=== PATIENT | female | born 1985 | race African-American/Black ===

== ENCOUNTER 2020-05-06 16:58 | Emergency (ER) | payer OTHER ==
[2020-05-06 17:10] VITALS: BP 170/90; PULSE 74; BMI 39.1
[2020-05-06 17:12] VITALS: TEMP 97.8
[2020-05-06] MEDS ORDERED: IBUPROFEN 400 MG TABLET (FP) PO ONE ×2 (17:48→18:35)
[2020-05-06] MEDS ORDERED: ACETAMINOPHEN 1000 MG/100 ML VIAL (NON FORMULARY) IVPB ONE (18:00)
[2020-05-06] MEDS ORDERED: SODIUM CHLORIDE 0.9% 500 ML INFUS.BAG IV ONE (18:00)
[2020-05-06] MEDS ORDERED: METOCLOPRAMIDE HCL INJECTION 10 MG/2 ML VIAL IVPB ONE ×2 (18:00→18:26)
[2020-05-06] MEDS ORDERED: METOCLOPRAMIDE HCL INJECTION 10 MG/2 ML VIAL ONE (18:31)
[2020-05-06] MEDS ORDERED: ACETAMINOPHEN 500 MG TABLET (FP) PO ONE (19:05)
[2020-05-06] MEDS ORDERED: ACETAMINOPHEN 325 MG TABLET (FP) ONE (19:06)
== END 2020-05-06 19:25 | disposition home or self-care (01) ==
LOC: JER 16:58
PROC: 3E0333Z Introduction of Anti-inflammatory into Peripheral Vein, Percutaneous Approach (ICD-10-PCS; principal; 2020-05-06)
PROC: 3E033GC Introduction of Other Therapeutic Substance into Peripheral Vein, Percutaneous Approach (ICD-10-PCS; 2020-05-06)
DX: G43.009 Migraine without aura, not intractable, without status migrainosus (principal)
CPT/HCPCS: 99284-25

== ENCOUNTER 2020-09-11 10:24 | Emergency (ER) | payer OTHER ==
[2020-09-11 10:33] VITALS: BP 145/82; PULSE 80; TEMP 97.6; BMI 37.5
[2020-09-11 11:41] LABS: HCG,QUALITATIVE URINE Negative
[2020-09-11 11:42] LABS: EPI CELLS 21 /uL (0-25.1); HYALINE CASTS 1 /uL (0-3.1); PH,URINE 5.5 (5.0-8.0); URINE APPEARANCE CLEAR; URINE BACTERIA 270 /uL (0-1359); URINE BILIRUBIN NEGATIVE (NEGATIVE); URINE COLOR YELLOW; URINE GLUCOSE (UA) NEGATIVE (NEGATIVE); URINE KETONE NEGATIVE (NEGATIVE); URINE LEUK ESTERASE NEGATIVE (NEGATIVE); URINE NITRITE NEGATIVE (NEGATIVE); URINE PROTEIN NEGATIVE (NEGATIVE); URINE RBC 18 /uL (0-23.9); URINE UROBILINOGEN 0.2 mg/dL (0.2-1.0); URINE WBC 6 /uL (0-25.8)
== END 2020-09-11 12:29 | disposition home or self-care (01) ==
LOC: JER 10:24
DX: R10.2 Pelvic and perineal pain (principal)
CPT/HCPCS: 36415; 76830-TC; 81003; 84703; 87086; 87491; 87591; 99284-25

== ENCOUNTER 2020-11-02 18:15 | Emergency (ER) | payer OTHER ==
[2020-11-02 18:20] VITALS: BP 159/92; PULSE 95; TEMP 98.8; BMI 44.1
[2020-11-02] MEDS ORDERED: KETOROLAC TROMETHAMINE 60 MG/2 ML VIAL IM ONE (19:17)
[2020-11-02] MEDS ORDERED: KETOROLAC TROMETHAMINE 30 MG/1 ML VIAL ONE (19:34)
== END 2020-11-02 20:45 | disposition home or self-care (01) ==
LOC: JERFT 18:15
PROC: 3E0233Z Introduction of Anti-inflammatory into Muscle, Percutaneous Approach (ICD-10-PCS; principal; 2020-11-02)
DX: K03.81 Cracked tooth (principal)
CPT/HCPCS: 99284-25

== ENCOUNTER 2021-01-17 19:19 | Emergency (ER) | payer OTHER ==
[2021-01-17 19:44] VITALS: BP 134/81; PULSE 67; TEMP 97.9; BMI 41.1
[2021-01-17 22:06] LABS: BASO % 0.5 % (0-2.0); EOS % 1.2 % (0-4.5); HEMATOCRIT 34.9 % (32.4-45.2); HEMOGLOBIN 11.9 GM/dL (10.7-15.3); MCHC 34.2 g/dl (32.0-36.0); MEAN CELL VOLUME 93.4 fl (80-96); MONO % 8.6 % (3.8-10.2); NEUT % 44.7 % (42.8-82.8); PLATELET COUNT 264 10^3/uL (134-434); RBC 3.74 M/mm3 (3.60-5.2); RDW 13.9 % (11.6-15.6)
[2021-01-17 22:21] LABS: EPI CELLS 24 /uL (0-25.1); HYALINE CASTS 2 /uL (0-3.1); PH,URINE 5.5 (5.0-8.0); URINE APPEARANCE CLOUDY; URINE BACTERIA 252 /uL (0-1359); URINE BILIRUBIN NEGATIVE (NEGATIVE); URINE COLOR DK YELLOW; URINE GLUCOSE (UA) NEGATIVE (NEGATIVE); URINE KETONE TRACE (NEGATIVE); URINE LEUK ESTERASE NEGATIVE (NEGATIVE); URINE NITRITE NEGATIVE (NEGATIVE); URINE PROTEIN NEGATIVE (NEGATIVE); URINE WBC 20 /uL (0-25.8)
== END 2021-01-18 00:24 | disposition home or self-care (01) ==
LOC: JER 19:19
DX: O20.9 Hemorrhage in early pregnancy, unspecified (principal); Z3A.01 Less than 8 weeks gestation of pregnancy
CPT/HCPCS: 36415; 76817-TC; 81003; 84702; 84703; 85025; 86850; 86900; 86901; 99284-25

== ENCOUNTER 2021-05-17 22:36 | Emergency (ER) | payer OTHER ==
[2021-05-17 22:57] VITALS: BMI 43.8
[2021-05-18] MEDS ORDERED: SODIUM CHLORIDE 0.9% 500 ML INFUS.BAG IV ONE (02:50)
[2021-05-18 02:51] VITALS: BP 116/74; PULSE 119; TEMP 99.6
[2021-05-18 03:28] LABS: BASO % 0.3 % (0-2.0); EOS % 1.5 % (0-4.5); HEMATOCRIT 33.4 % (32.4-45.2); HEMOGLOBIN 11.5 GM/dL (10.7-15.3); LYMPH % 9.5 % (8-40); MCH 31.2 pg (25.7-33.7); MCHC 34.5 g/dl (32.0-36.0); MEAN CELL VOLUME 90.4 fl (80-96); MEAN PLT VOLUME 8.6 fl (7.5-11.1); MONO % 14.5 % (3.8-10.2); NEUT % 74.2 % (42.8-82.8); PLATELET COUNT 263 10^3/uL (134-434); RBC 3.69 M/mm3 (3.60-5.2); RDW 14.3 % (11.6-15.6); WHITE BLOOD COUNT 6.7 K/mm3 (4.0-10.0)
[2021-05-18] MEDS ORDERED: MAG HYDROX/AL HYDROX/SIMETH 30 ML UNIT-DOSE CUP PO ONE (03:36)
[2021-05-18] MEDS ORDERED: FAMOTIDINE 20 MG/50 ML IVPB 50 ML IVPB ONE (03:36)
[2021-05-18] MEDS ORDERED: ACETAMINOPHEN 1000 MG/100 ML VIAL IVPB ONE (03:37)
[2021-05-18 03:48] LABS: CALCIUM 8.7 mg/dL (8.5-10.1)
[2021-05-18 03:49] LABS: ALBUMIN 2.9 g/dl (3.4-5.0); BLOOD UREA NITROGEN 4.5 mg/dL (7-18)
[2021-05-18 03:52] LABS: CREATININE 0.5 mg/dL (0.55-1.3)
[2021-05-18 03:54] LABS: BILIRUBIN,TOTAL 0.3 mg/dL (0.2-1); TOT PROT 7.4 g/dl (6.4-8.2)
[2021-05-18] MEDS ORDERED: MAG HYDROX/AL HYDROX/SIMETH 30 ML UNIT-DOSE CUP ONE (04:04)
[2021-05-18] MEDS ORDERED: ACETAMINOPHEN INJECTION 100 ML IVPB ONE (04:04)
[2021-05-18 05:30] LABS: EPI CELLS 25 /uL (0-25.1); HYALINE CASTS 2 /uL (0-3.1); PH,URINE 6.5 (5.0-8.0); URINE APPEARANCE CLEAR; URINE BACTERIA 436 /uL (0-1359); URINE BILIRUBIN NEGATIVE (NEGATIVE); URINE COLOR YELLOW; URINE GLUCOSE (UA) NEGATIVE (NEGATIVE); URINE KETONE 2+ (NEGATIVE); URINE LEUK ESTERASE NEGATIVE (NEGATIVE); URINE NITRITE NEGATIVE (NEGATIVE); URINE PROTEIN TRACE (NEGATIVE); URINE RBC 82 /uL (0-23.9); URINE WBC 14 /uL (0-25.8)
[2021-05-18] MEDS ORDERED: FAMOTIDINE/PF 20 MG/2 ML VIAL IVPB ONE (05:30)
== END 2021-05-18 05:48 | disposition home or self-care (01) ==
LOC: JER 22:36
DX: U07.1 COVID-19 (principal); R00.0 Tachycardia, unspecified; N39.0 Urinary tract infection, site not specified
CPT/HCPCS: 36415; 80053; 81003; 85025; 87086; 87804; 93005; 93010; 99284-25; C9803; J0131; U0003; U0005

== ENCOUNTER 2021-05-25 10:24 | Emergency (ER) | payer OTHER ==
[2021-05-25 10:36] VITALS: BP 118/71; PULSE 123; TEMP 97.9; BMI 47.0
[2021-05-25] MEDS ORDERED: SODIUM CHLORIDE 1,000 ML IV STA (12:16)
[2021-05-25] MEDS ORDERED: ALBUTEROL SO4 HFA INHALER IH ONE ×2 (12:16→12:59)
== END 2021-05-25 16:06 | disposition home or self-care (01) ==
LOC: JER 10:24
PROC: 3E0337Z Introduction of Electrolytic and Water Balance Substance into Peripheral Vein, Percutaneous Approach (ICD-10-PCS; principal; 2021-05-25)
PROC: 3E0F7GC Introduction of Other Therapeutic Substance into Respiratory Tract, Via Natural or Artificial Opening (ICD-10-PCS; 2021-05-25)
DX: U07.1 COVID-19 (principal)
CPT/HCPCS: 99284-25

== ENCOUNTER 2021-06-10 15:06 | Emergency (ER) | payer OTHER ==
[2021-06-10 15:26] VITALS: BMI 40.5
[2021-06-10] MEDS ORDERED: ALBUTEROL SO4 2.5/IPRATROPIUM 0.5 INH SOL 3 ML VIAL.NEB. NEB ONE ×4 (15:36→22:18)
[2021-06-10] MEDS ORDERED: ALBUTEROL SO4 0.083% IH SOL 2.5 MG/3 ML VIAL.NEB. NEB ONE (16:20)
[2021-06-10 19:57] VITALS: BP 130/71; PULSE 82; TEMP 98.3
[2021-06-10] MEDS ORDERED: AMOXICILLIN 500 MG CAPSULE (FP) PO ONE (21:30)
[2021-06-10] MEDS ORDERED: AMOXICILLIN 500 MG CAPSULE (FP) ONE (22:18)
[2021-06-10] MEDS ORDERED: ALBUTEROL SO4 HFA INHALER IH ONE (23:08)
== END 2021-06-10 23:49 | disposition home or self-care (01) ==
LOC: JER 15:06 → JERFT 15:06 → JER 20:35
PROC: 3E0F7GC Introduction of Other Therapeutic Substance into Respiratory Tract, Via Natural or Artificial Opening (ICD-10-PCS; principal; 2021-06-10)
PROC: 3E0F7GC Introduction of Other Therapeutic Substance into Respiratory Tract, Via Natural or Artificial Opening (ICD-10-PCS; 2021-06-10)
DX: O99.53 Diseases of the respiratory system complicating the puerperium (principal); R06.2 Wheezing; Z3A.27 27 weeks gestation of pregnancy
CPT/HCPCS: 93005; 93010; 99283-25

== ENCOUNTER 2021-06-13 11:21 | Emergency (ER) | payer OTHER ==
[2021-06-13 11:33] VITALS: BP 143/76; TEMP 98.1; BMI 39.3
[2021-06-13] MEDS ORDERED: predniSONE 20 MG TABLET (UD) PO ONE (11:38)
[2021-06-13] MEDS ORDERED: ALBUTEROL SO4 2.5/IPRATROPIUM 0.5 INH SOL 3 ML VIAL.NEB. NEB SCH (11:45)
[2021-06-13 12:25] VITALS: PULSE 95
== END 2021-06-13 14:26 | disposition home or self-care (01) ==
LOC: JER 11:21
PROC: 3E0F7GC Introduction of Other Therapeutic Substance into Respiratory Tract, Via Natural or Artificial Opening (ICD-10-PCS; principal; 2021-06-13)
DX: R06.2 Wheezing (principal)
CPT/HCPCS: 71045-TC-FY; 93005; 93010; 99283-25

== ENCOUNTER 2021-06-20 14:56 | Emergency (ER) | payer OTHER ==
[2021-06-20 15:12] VITALS: BP 116/65; PULSE 91; TEMP 97.9; BMI 40.4
[2021-06-20] MEDS ORDERED: ALBUTEROL SO4 0.083% IH SOL 2.5 MG/3 ML VIAL.NEB. NEB ONE ×2 (18:00→18:17)
[2021-06-20 18:05] LABS: BASO % 0.1 % (0-2.0); EOS % 0.2 % (0-4.5); HEMOGLOBIN 11.3 GM/dL (10.7-15.3); LYMPH % 10.6 % (8-40); MCH 30.6 pg (25.7-33.7); MCHC 33.3 g/dl (32.0-36.0); MEAN PLT VOLUME 8.2 fl (7.5-11.1); MONO % 2.8 % (3.8-10.2); NEUT % 86.3 % (42.8-82.8); PLATELET COUNT 286 10^3/uL (134-434); RDW 14.9 % (11.6-15.6); WHITE BLOOD COUNT 9.2 K/mm3 (4.0-10.0)
[2021-06-20 18:13] LABS: CHLORIDE 109 mmol/L (98-107); SODIUM 139 mmol/L (136-145)
[2021-06-20 18:16] LABS: ANION GAP 10 MMOL/L (8-16); BLOOD UREA NITROGEN 4.3 mg/dL (7-18); CO2 21 mmol/L (21-32); GLUCOSE,RANDOM 110 mg/dL (74-106); MAGNESIUM 1.9 mg/dL (1.8-2.4)
[2021-06-20 18:19] LABS: CREATININE 0.6 mg/dL (0.55-1.3); SGOT/AST 17 U/L (15-37); SGPT/ALT 19 U/L (13-61)
[2021-06-20 18:21] LABS: BILIRUBIN,TOTAL 0.5 mg/dL (0.2-1); TOT PROT 7.5 g/dl (6.4-8.2)
[2021-06-20 18:22] LABS: ALK PHOS 92 U/L (45-117)
== END 2021-06-20 22:05 | disposition home or self-care (01) ==
LOC: JER 14:56 → JERFT 14:56 → JER 22:05
PROC: 3E0F7GC Introduction of Other Therapeutic Substance into Respiratory Tract, Via Natural or Artificial Opening (ICD-10-PCS; principal; 2021-06-20)
DX: O26.893 Other specified pregnancy related conditions, third trimester (principal); R06.02 Shortness of breath; Z3A.28 28 weeks gestation of pregnancy
CPT/HCPCS: 36415; 71275-TC; 80053; 82550; 83735; 84484; 85025; 85379; 93005; 93010; 99285-25; Q9967

== ENCOUNTER 2021-07-22 17:31 | Emergency (ER) | payer OTHER ==
[2021-07-22 17:59] VITALS: BP 159/89; PULSE 85; TEMP 98.3; BMI 40.1
== END 2021-07-22 19:10 | disposition home or self-care (01) ==
LOC: JER 17:31
DX: O99.613 Diseases of the digestive system complicating pregnancy, third trimester (principal); K29.00 Acute gastritis without bleeding; Z3A.32 32 weeks gestation of pregnancy
CPT/HCPCS: 99283-25

== ENCOUNTER 2021-09-18 01:31 | Emergency (ER) | payer OTHER ==
[2021-09-18 02:07] VITALS: TEMP 97.9; BMI 39.1
[2021-09-18] MEDS ORDERED: ACETAMINOPHEN 1000 MG/100 ML BAG IVPB ONE (02:15)
[2021-09-18] MEDS ORDERED: METOCLOPRAMIDE HCL INJECTION 10 MG/2 ML VIAL IVPB ONE (02:21)
[2021-09-18] MEDS ORDERED: METOCLOPRAMIDE HCL INJECTION 10 MG/2 ML VIAL ONE (02:25)
[2021-09-18] MEDS ORDERED: ACETAMINOPHEN INJECTION 100 ML IVPB ONE (02:25)
[2021-09-18 02:53] LABS: BASO % 0.4 % (0-2.0); EOS % 2.7 % (0-4.5); HEMATOCRIT 32.7 % (32.4-45.2); HEMOGLOBIN 11.1 GM/dL (10.7-15.3); MCH 30.5 pg (25.7-33.7); MCHC 33.9 g/dl (32.0-36.0); MEAN PLT VOLUME 8.3 fl (7.5-11.1); MONO % 7.9 % (3.8-10.2); PLATELET COUNT 413 10^3/uL (134-434); RBC 3.64 M/mm3 (3.60-5.2); RDW 15.1 % (11.6-15.6); WHITE BLOOD COUNT 7.6 K/mm3 (4.0-10.0)
[2021-09-18 02:58] LABS: EPI CELLS >36 /uL (0-25.1); HYALINE CASTS 4 /uL (0-3.1); PH,URINE 6.5 (5.0-8.0); URINE APPEARANCE CLOUDY; URINE BACTERIA 710 /uL (0-1359); URINE BILIRUBIN NEGATIVE (NEGATIVE); URINE COLOR ORANGE; URINE GLUCOSE (UA) NEGATIVE (NEGATIVE); URINE KETONE NEGATIVE (NEGATIVE); URINE LEUK ESTERASE 3+ (NEGATIVE); URINE NITRITE NEGATIVE (NEGATIVE); URINE PROTEIN 1+ (NEGATIVE); URINE RBC 21 /uL (0-23.9); URINE UROBILINOGEN 0.2 mg/dL (0.2-1.0); URINE WBC 730 /uL (0-25.8)
[2021-09-18 03:01] LABS: INR 1.24 (0.83-1.09); PROTHROMBIN TIME (PATIENT) 14.3 SEC (9.7-13.0)
[2021-09-18 03:04] LABS: ACTIVATED PTT 31.2 SECONDS (25.2-36.5)
[2021-09-18 03:16] LABS: ALBUMIN 3.3 g/dl (3.4-5.0); CALCIUM 8.7 mg/dL (8.5-10.1)
[2021-09-18] MEDS ORDERED: LABETALOL HCL 5 MG/1 ML (100MG/20 ML VIAL) IVPUSH ONE (03:16)
[2021-09-18 03:18] LABS: CREATININE 0.9 mg/dL (0.55-1.3)
[2021-09-18 03:21] LABS: BILIRUBIN,TOTAL 0.4 mg/dL (0.2-1); TOT PROT 7.8 g/dl (6.4-8.2)
[2021-09-18 03:35] LABS: BLOOD UREA NITROGEN 13.2 mg/dL (7-18)
[2021-09-18 04:14] VITALS: BP 150/78; PULSE 79
[2021-09-18 04:33] LABS: YEAST FEW (NEGATIVE)
== END 2021-09-18 04:15 | disposition home or self-care (01) ==
LOC: JER 01:31
DX: R51.9 Headache, unspecified (principal)
CPT/HCPCS: 36415; 80053; 81003; 84484; 85025; 85610; 85730; 93005; 93010; 99284-25

== ENCOUNTER 2021-09-18 17:55 | Emergency (ER) | payer OTHER ==
[2021-09-18 18:29] VITALS: BMI 39.0
[2021-09-18 18:48] VITALS: BP 135/66; PULSE 75
== END 2021-09-18 20:00 | disposition home or self-care (01) ==
LOC: JER 17:55
DX: R03.0 Elevated blood-pressure reading, without diagnosis of hypertension (principal)
CPT/HCPCS: 99281-25

== ENCOUNTER 2021-09-26 00:35 | Emergency (ER) | payer OTHER ==
[2021-09-26 00:45] VITALS: BP 157/80; PULSE 82; TEMP 98.2; BMI 39.3
[2021-09-26] MEDS ORDERED: ACETAMINOPHEN 650 MG/20.3 ML ORAL SOLUTION (CUPS) PO STA (01:37)
[2021-09-26] MEDS ORDERED: ACETAMINOPHEN 325 MG TABLET (FP) ONE (01:38)
[2021-09-26] MEDS ORDERED: ACETAMINOPHEN 325 MG TABLET (FP) PO STA (01:50)
== END 2021-09-26 01:54 | disposition home or self-care (01) ==
LOC: JER 00:35
DX: G43.909 Migraine, unspecified, not intractable, without status migrainosus (principal); I10 Essential (primary) hypertension
CPT/HCPCS: 93005; 93010; 99283-25

== ENCOUNTER 2021-12-24 03:27 | Emergency (ER) | payer OTHER ==
[2021-12-24 03:43] VITALS: RESP 18; BMI 33.5
[2021-12-24] MEDS ORDERED: LORazepam 2 MG TABLET PO ONE (04:50)
[2021-12-24 05:50] LABS: BASO % 0.4 % (0-2.0); EOS % 1.9 % (0-4.5); HEMATOCRIT 35.4 % (32.4-45.2); HEMOGLOBIN 11.8 GM/dL (10.7-15.3); LYMPH % 44.2 % (8-40); MCH 29.1 pg (25.7-33.7); MCHC 33.2 g/dl (32.0-36.0); MEAN CELL VOLUME 87.4 fl (80-96); MEAN PLT VOLUME 8.8 fl (7.5-11.1); NEUT % 44.5 % (42.8-82.8); PLATELET COUNT 278 10^3/uL (134-434); RBC 4.06 M/mm3 (3.60-5.2); RDW 15.9 % (11.6-15.6); WHITE BLOOD COUNT 5.5 K/mm3 (4.0-10.0)
[2021-12-24 05:56] LABS: CALCIUM 8.8 mg/dL (8.5-10.1)
[2021-12-24 05:57] LABS: ALBUMIN 3.8 g/dl (3.4-5.0); BLOOD UREA NITROGEN 16.2 mg/dL (7-18)
[2021-12-24 06:00] LABS: CREATININE 1.1 mg/dL (0.55-1.3)
[2021-12-24 06:02] LABS: BILIRUBIN,TOTAL 0.4 mg/dL (0.2-1)
[2021-12-24] MEDS ORDERED: LORazepam 1 MG TABLET ONE (06:06)
[2021-12-24 06:37] VITALS: BP 123/53; PULSE 81; TEMP 98.6
== END 2021-12-24 06:58 | disposition home or self-care (01) ==
LOC: JER 03:27
DX: R00.2 Palpitations (principal)
CPT/HCPCS: 36415; 80053; 84443; 84484; 84703; 85025; 93005; 93010; 99285-25

== ENCOUNTER 2021-12-31 11:02 | Emergency (ER) | payer OTHER ==
[2021-12-31 11:08] VITALS: PULSE 82; RESP 18; TEMP 98.4; BMI 38.9
[2021-12-31 12:04] VITALS: BP 111/74
[2021-12-31] MEDS ORDERED: METOCLOPRAMIDE HCL INJECTION 10 MG/2 ML VIAL IVPUSH ONE (12:22)
[2021-12-31] MEDS ORDERED: SODIUM CHLORIDE 1,000 ML IV STA (12:22)
[2021-12-31] MEDS ORDERED: KETOROLAC TROMETHAMINE 30 MG/1 ML VIAL IVPUSH ONE (12:22)
[2021-12-31] MEDS ORDERED: KETOROLAC TROMETHAMINE 30 MG/1 ML VIAL ONE (12:30)
[2021-12-31] MEDS ORDERED: METOCLOPRAMIDE HCL INJECTION 10 MG/2 ML VIAL ONE (12:30)
== END 2021-12-31 14:51 | disposition home or self-care (01) ==
LOC: JER 11:02 → JERFT 11:02
PROC: 3E033GC Introduction of Other Therapeutic Substance into Peripheral Vein, Percutaneous Approach (ICD-10-PCS; principal; 2021-12-31)
PROC: 3E0333Z Introduction of Anti-inflammatory into Peripheral Vein, Percutaneous Approach (ICD-10-PCS; 2021-12-31)
PROC: 3E033GC Introduction of Other Therapeutic Substance into Peripheral Vein, Percutaneous Approach (ICD-10-PCS; 2021-12-31)
PROC: 3E0337Z Introduction of Electrolytic and Water Balance Substance into Peripheral Vein, Percutaneous Approach (ICD-10-PCS; 2021-12-31)
DX: G43.909 Migraine, unspecified, not intractable, without status migrainosus (principal)
CPT/HCPCS: 99284-25

== ENCOUNTER 2022-01-09 22:00 | Emergency (ER) | payer OTHER ==
[2022-01-09 22:21] VITALS: BP 139/79; PULSE 70; RESP 18; TEMP 97.9; BMI 38.3
[2022-01-09] MEDS ORDERED: MAG HYDROX/AL HYDROX/SIMETH 30 ML UNIT-DOSE CUP PO ONE (23:25)
[2022-01-09] MEDS ORDERED: MAG HYDROX/AL HYDROX/SIMETH 30 ML UNIT-DOSE CUP ONE (23:36)
== END 2022-01-10 00:33 | disposition home or self-care (01) ==
LOC: JER 22:00
DX: F41.0 Panic disorder [episodic paroxysmal anxiety] (principal); K21.9 Gastro-esophageal reflux disease without esophagitis
CPT/HCPCS: 71046-TC-FY; 93005; 93010; 99283-25; 99284-25

== ENCOUNTER 2022-01-29 17:53 | Emergency (ER) | payer OTHER ==
[2022-01-29 17:58] VITALS: BP 149/85; PULSE 72; RESP 18; TEMP 97.4; BMI 38.9
[2022-01-29 20:12] LABS: BASO % 0.8 % (0-2.0); HEMATOCRIT 36.3 % (32.4-45.2); HEMOGLOBIN 12.4 GM/dL (10.7-15.3); LYMPH % 20.4 % (8-40); MEAN CELL VOLUME 88.3 fl (80-96); MEAN PLT VOLUME 8.3 fl (7.5-11.1); MONO % 3.6 % (3.8-10.2); NEUT % 75.2 % (42.8-82.8); PLATELET COUNT 331 10^3/uL (134-434); RBC 4.12 M/mm3 (3.60-5.2); WHITE BLOOD COUNT 7.6 K/mm3 (4.0-10.0)
[2022-01-29 20:20] LABS: INR 1.19 (0.83-1.09); PROTHROMBIN TIME (PATIENT) 13.7 SEC (9.7-13.0)
[2022-01-29 20:23] LABS: ACTIVATED PTT 30.5 SECONDS (25.2-36.5)
[2022-01-29 20:34] LABS: ALBUMIN 3.9 g/dl (3.4-5.0); BLOOD UREA NITROGEN 16.7 mg/dL (7-18); CALCIUM 9.4 mg/dL (8.5-10.1)
[2022-01-29 20:35] LABS: MAGNESIUM 2.4 mg/dL (1.8-2.4)
[2022-01-29 20:37] LABS: CREATININE 0.8 mg/dL (0.55-1.3)
[2022-01-29 20:39] LABS: BILIRUBIN,TOTAL 0.3 mg/dL (0.2-1); TOT PROT 8.2 g/dl (6.4-8.2)
== END 2022-01-29 20:52 | disposition home or self-care (01) ==
LOC: JER 17:53
DX: K21.9 Gastro-esophageal reflux disease without esophagitis (principal)
CPT/HCPCS: 36415; 71046-TC-FY; 80053; 83735; 84484; 85025; 85610; 85730; 93005; 93010; 99285-25

== ENCOUNTER 2022-02-19 12:44 | Emergency (ER) | payer OTHER ==
[2022-02-19 12:59] VITALS: TEMP 97.4; BMI 40.7
[2022-02-19] MEDS ORDERED: SODIUM CHLORIDE 0.9% 500 ML INFUS.BAG IV ONE (13:31)
[2022-02-19 14:18] LABS: INR 1.28 (0.83-1.09); PROTHROMBIN TIME (PATIENT) 14.7 SEC (9.7-13.0)
[2022-02-19 14:21] LABS: ACTIVATED PTT 32.2 SECONDS (25.2-36.5)
[2022-02-19 14:49] LABS: BASO % 0.5 % (0-2.0); BLOOD UREA NITROGEN 13.1 mg/dL (7-18); CALCIUM 9.3 mg/dL (8.5-10.1); EOS % 1.5 % (0-4.5); HEMATOCRIT 36.3 % (32.4-45.2); HEMOGLOBIN 12.3 GM/dL (10.7-15.3); LYMPH % 31.3 % (8-40); MCH 30.1 pg (25.7-33.7); MCHC 33.8 g/dl (32.0-36.0); MEAN CELL VOLUME 88.9 fl (80-96); MEAN PLT VOLUME 8.6 fl (7.5-11.1); MONO % 8.3 % (3.8-10.2); NEUT % 58.4 % (42.8-82.8); PLATELET COUNT 320 10^3/uL (134-434); RBC 4.08 M/mm3 (3.60-5.2); RDW 14.2 % (11.6-15.6)
[2022-02-19 14:53] LABS: CREATININE 1.4 mg/dL (0.55-1.3)
[2022-02-19] MEDS ORDERED: ALPRAZolam 0.25 MG TABLET PO ONE (15:01)
[2022-02-19] MEDS ORDERED: ALPRAZolam 0.25 MG TABLET ONE (15:07)
[2022-02-19 15:47] VITALS: RESP 19
[2022-02-19 17:09] VITALS: BP 122/98; PULSE 89
== END 2022-02-19 17:10 | disposition home or self-care (01) ==
LOC: JER 12:44
DX: R00.0 Tachycardia, unspecified (principal)
CPT/HCPCS: 36415; 80048; 84443; 84703; 85025; 85379; 85610; 85730; 93005; 93010; 99284-25

== ENCOUNTER 2022-02-23 18:04 | Emergency (ER) | payer OTHER ==
[2022-02-23 18:07] VITALS: BP 134/83; PULSE 70; RESP 18; TEMP 97; BMI 39.9
== END 2022-02-23 19:54 | disposition home or self-care (01) ==
LOC: JER 18:04 → JERFT 18:04
DX: I10 Essential (primary) hypertension (principal)
CPT/HCPCS: 99281-25

== ENCOUNTER 2022-03-23 17:30 | Emergency (ER) | payer OTHER ==
[2022-03-23 17:39] VITALS: BP 124/57; PULSE 96; RESP 18; TEMP 98.1; BMI 44.4
[2022-03-23] MEDS ORDERED: KETOROLAC TROMETHAMINE 30 MG/1 ML VIAL IM ONE (19:16)
[2022-03-23] MEDS ORDERED: KETOROLAC TROMETHAMINE 30 MG/1 ML VIAL ONE (19:35)
== END 2022-03-23 21:05 | disposition home or self-care (01) ==
LOC: JER 17:30
PROC: 3E0233Z Introduction of Anti-inflammatory into Muscle, Percutaneous Approach (ICD-10-PCS; principal; 2022-03-23)
DX: R51.9 Headache, unspecified (principal); I10 Essential (primary) hypertension
CPT/HCPCS: 93005; 93010; 99283-25

== ENCOUNTER 2022-06-09 17:48 | Emergency (ER) | payer OTHER ==
[2022-06-09 18:09] VITALS: BP 121/63; PULSE 95; RESP 18; TEMP 98.6; BMI 41.0
[2022-06-09] MEDS ORDERED: KETOROLAC TROMETHAMINE 30 MG/1 ML VIAL IM ONE (20:10)
[2022-06-09] MEDS ORDERED: KETOROLAC TROMETHAMINE 30 MG/1 ML VIAL ONE (20:17)
== END 2022-06-09 20:26 | disposition home or self-care (01) ==
LOC: JERFT 17:48
PROC: 3E023GC Introduction of Other Therapeutic Substance into Muscle, Percutaneous Approach (ICD-10-PCS; principal; 2022-06-09)
DX: I10 Essential (primary) hypertension (principal)
CPT/HCPCS: 71046-TC-FY; 93005; 93010; 99284-25

== ENCOUNTER 2022-08-17 00:46 | Emergency (ER) | payer OTHER ==
[2022-08-17 00:56] VITALS: BP 161/90; PULSE 89; RESP 17; TEMP 98.7; BMI 39.4
[2022-08-17] MEDS ORDERED: KETOROLAC TROMETHAMINE 10 MG TABLET PO ONE (02:50)
[2022-08-17] MEDS ORDERED: KETOROLAC TROMETHAMINE 15 MG/ML VIAL IM ONE (02:51)
[2022-08-17] MEDS ORDERED: KETOROLAC TROMETHAMINE 15 MG/ML VIAL ONE (02:55)
== END 2022-08-17 03:02 | disposition home or self-care (01) ==
LOC: JER 00:46
PROC: 3E023GC Introduction of Other Therapeutic Substance into Muscle, Percutaneous Approach (ICD-10-PCS; principal; 2022-08-17)
DX: I10 Essential (primary) hypertension (principal)
CPT/HCPCS: 93005; 93010; 99284-25

== ENCOUNTER 2022-12-21 04:04 | Emergency (ER) | payer OTHER ==
[2022-12-21 04:08] VITALS: BMI 40.1
[2022-12-21] MEDS ORDERED: FAMOTIDINE 20 MG/50 ML IVPB 20 MG/50 ML MG IVPB ONE ×2 (05:22→05:41)
[2022-12-21] MEDS ORDERED: ACETAMINOPHEN 1000 MG/100 ML BAG IVPB ONE (05:22)
[2022-12-21] MEDS ORDERED: ACETAMINOPHEN INJECTION 100 ML IVPB ONE (05:41)
[2022-12-21 06:48] LABS: BASO % 0.6 % (0-2.0); EOS % 2.7 % (0-4.5); HEMATOCRIT 35.2 % (32.4-45.2); HEMOGLOBIN 11.6 GM/dL (10.7-15.3); LYMPH % 41.5 % (8-40); MEAN PLT VOLUME 9.4 fl (7.5-11.1); MONO % 8.7 % (3.8-10.2); NEUT % 46.5 % (42.8-82.8); PLATELET COUNT 284 10^3/uL (134-434); RBC 3.86 M/mm3 (3.60-5.2); RDW 14.2 % (11.6-15.6); WHITE BLOOD COUNT 5.4 K/mm3 (4.0-10.0)
[2022-12-21 06:50] LABS: POTASSIUM 3.9 mmol/L (3.5-5.1)
[2022-12-21 06:52] LABS: CALCIUM 8.8 mg/dL (8.5-10.1)
[2022-12-21 06:53] LABS: ALBUMIN 3.6 g/dl (3.4-5.0); BLOOD UREA NITROGEN 12.1 mg/dL (7-18)
[2022-12-21 06:56] LABS: CREATININE 0.7 mg/dL (0.55-1.3)
[2022-12-21 06:57] LABS: BILIRUBIN,TOTAL 0.5 mg/dL (0.2-1); TOT PROT 7.7 g/dl (6.4-8.2)
[2022-12-21 09:34] VITALS: BP 119/78; PULSE 65; RESP 18; TEMP 98.5
== END 2022-12-21 09:43 | disposition home or self-care (01) ==
LOC: JER 04:04
PROC: 3E033GC Introduction of Other Therapeutic Substance into Peripheral Vein, Percutaneous Approach (ICD-10-PCS; principal; 2022-12-21)
DX: R07.9 Chest pain, unspecified (principal)
CPT/HCPCS: 36415; 71045-TC-FY; 80053; 84484; 84703; 85025; 93005; 93010; 99285-25